=== PATIENT | male | born 1990 | race Caucasian/White ===

== ENCOUNTER 2021-07-06 13:11 | Emergency (ER) | payer SELFPAY ==
[2021-07-06] MEDS ORDERED: SODIUM CHLORIDE 0.9% 500 ML 1,000 ML IV ONE (13:43)
--- NOTE | 2021-07-06 13:43 | Emergency Department Report ---
ED General Adult HPI - General Stated complaint: NIMISHA/FEVER Time Seen by Provider: 07/06/21 13:42 - History of Present Illness Initial comments: Patient presents with a 1 week history of GI symptoms associated with cough and congestion. He has had nausea, vomiting, and diarrhea. He reports having chest pain and abdominal pain. He has had shortness of breath with a productive cough. Cough has been producing green phlegm. He has felt some shortness of breath. He came in today with his . He states that she is more ill than he has. They have no known coronavirus exposure. He has not been vaccinated. Patient states that he has generalized malaise and just does not feel well. The epigastric and chest pain are described as continuous. They are sharp and burning. The symptoms are not worse with inspiration, position, or exertion. He came in today because he felt his symptoms were worsening over the last 24 hours. - Related Data Previous Rx's Medication Instructions Recorded Last Taken Type Albuterol Mdi (or & Nicu Only) 2 puff IH QID PRN #8.5 gram 07/06/21 Unknown Rx [ProAir HFA Inhaler] Ondansetron [Zofran Odt] 4 mg PO Q8HR #20 tab.rapdis 07/06/21 Unknown Rx methylPREDNISolone [Medrol 4MG 4 mg PO 1XW #1 tab.ds.pk 07/06/21 Unknown Rx DOSEPAK (21 tabs)] Allergies Allergy/AdvReac Type Severity Reaction Status Date / Time No Known Allergies Allergy Unverified 07/06/21 14:12 ED Review of Systems ROS: Stated complaint: NIMISHA/FEVER Other details as noted in HPI Comment: All other systems reviewed and negative Constitutional: no symptoms reported, fever Eyes: denies: eye pain ENT: denies: throat pain Respiratory: no symptoms reported, cough Cardiovascular: as per HPI, chest pain Endocrine: denies: unexplained weight loss Gastrointestinal: as per HPI Genitourinary: denies: dysuria Musculoskeletal: denies: back pain Skin: denies: rash Neurological: denies: headache Hematological/Lymphatic: denies: easy bruising ED Past Medical Hx - Past Medical History Previous Medical History?: No - Family History Family history: no significant - Medications Home Medications: Home Medications Medication Instructions Recorded Confirmed Last Taken Type Albuterol Mdi (or & Nicu Only) 2 puff IH QID PRN #8.5 gram 07/06/21 Unknown Rx [ProAir HFA Inhaler] Ondansetron [Zofran Odt] 4 mg PO Q8HR #20 tab.rapdis 07/06/21 Unknown Rx methylPREDNISolone [Medrol 4MG 4 mg PO 1XW #1 tab.ds.pk 07/06/21 Unknown Rx DOSEPAK (21 tabs)] ED Physical Exam - General General appearance: alert, anxious, in distress (Mild) - Head Head exam: Present: atraumatic, normocephalic, normal inspection - Eye Eye exam: Present: normal appearance, EOMI. Absent: scleral icterus - ENT ENT exam: Present: normal exam, mucous membranes moist - Neck Neck exam: Present: normal inspection, full ROM. Absent: meningismus - Respiratory Respiratory exam: Present: normal lung sounds bilaterally. Absent: respiratory distress - Cardiovascular Cardiovascular Exam: Present: other (Normal pulses) - GI/Abdominal GI/Abdominal exam: Present: other (Flat) - Extremities Exam Extremities exam: Present: normal inspection - Back Exam Back exam: Present: normal inspection - Neurological Exam Neurological exam: Present: alert, oriented X3, normal gait - Psychiatric Psychiatric exam: Present: normal affect, normal mood - Skin Skin exam: Absent: cyanosis, diaphoretic ED Course Vital Signs 07/06/21 07/06/21 07/06/21 13:30 13:46 14:16 Pulse Rate 96 H 83 Respiratory 46 H 44 H Rate Blood Pressure O2 Sat by Pulse 93 94 93 Oximetry 07/06/21 07/06/21 07/06/21 14:30 14:46 15:00 Pulse Rate 80 77 74 Respiratory 32 H 35 H 31 H Rate Blood Pressure 102/68 O2 Sat by Pulse 94 94 94 Oximetry 07/06/21 15:16 Pulse Rate 81 Respiratory 33 H Rate Blood Pressure 102/68 O2 Sat by Pulse 96 Oximetry - Reevaluation(s) Reevaluation #1: 07/06/21 13:43 IV and labs are ordered. Reevaluation #2: 07/06/21 14:17 EKG was noted. Reevaluation #3: 07/06/21 17:01 Work-up is complete. Patient is not hypoxic. He does have symptoms of suggest coronavirus. He is not hypoxic and does not require admission. There is no evidence of a lobar pneumonia. He does not have features of severe sepsis or septic shock. Patient does not appear to be in any distress at this time. I do believe discharge would be most appropriate. He will quarantine at home and follow-up with his regular physician. He certainly does not have symptoms suggestive of bowel obstruction or perforation. There is no peritoneal find ings. He is not anemic. There is no evidence of profound dehydration. ED Medical Decision Making - Lab Data Result diagrams: 07/06/21 13:57 07/06/21 13:57 - EKG Data -: EKG Interpreted by Me EKG shows normal: sinus rhythm, axis, intervals, QRS complexes, ST-T waves Rate: normal - EKG Data When compared to previous EKG there are: previous EKG unavailable Interpretation: no acute changes (EKG shows a normal sinus rhythm with normal intervals. There is no ST elevation suggestive of ischemia. There is isolated T wave inversion in lead III.) Critical Care Time: No Critical care attestation.: If time is entered above; I have spent that time in minutes in the direct care of this critically ill patient, excluding procedure time. ED Disposition Clinical Impression: Nausea vomiting and diarrhea, Acute URI, Suspected COVID-19 virus infection Disposition: HOME / SELF CARE / HOMELESS Is pt being admited?: No Does the pt Need Aspirin: No Condition: Stable Instructions: Cool Mist Vaporizer, Nausea and Vomiting, Adult, Upper Respiratory Infection, Adult, [id number], Viral Respiratory Infection Test Additional Instructions: Drink plenty water. Return for problems. Follow-up with your regular doctor. Quarantine at home for 2 weeks. Prescriptions: methylPREDNISolone [Medrol 4MG DOSEPAK (21 tabs)] 4 mg PO 1XW #1 tab.ds.pk Albuterol Mdi (or & Nicu Only) [ProAir HFA Inhaler] 2 puff IH QID PRN #8.5 gram PRN Reason: Shortness Of Breath Ondansetron [Zofran Odt] 4 mg PO Q8HR #20 tab.rapdis Print Language: WELSH
[2021-07-06] MEDS ORDERED: ONDANSETRON 4 MG/2 ML INJ IV NR (13:46)
[2021-07-06 14:42] LABS: Alanine Aminotransferase 67 units/L (7-56); Albumin 3.8 g/dL (3.9-5); BUN/Creatinine Ratio 18; Blood Urea Nitrogen 14 mg/dL (9-20); Calcium 8.8 mg/dL (8.4-10.2); Hemolysis Index 5
[2021-07-06 14:44] LABS: Basophils % (Auto) 0.2 % (0.0-1.8); Hematocrit 40.3 % (35.5-45.6); Hemoglobin 14.1 gm/dl (11.8-15.2); Lymphocytes # (Auto) 0.6 K/mm3 (1.2-5.4); Lymphocytes % (Auto) 10.2 % (13.4-35.0); Mean Corpuscular HGB Conc 35 % (32-34); Mean Corpuscular Volume 88 fl (84-94); Monocytes # (Auto) 0.4 K/mm3 (0.0-0.8); Monocytes % (Auto) 7.1 % (0.0-7.3); Platelet Count 145 K/mm3 (140-440); Red Blood Count 4.56 M/mm3 (3.65-5.03); Red Cell Distribution Width 12.5 % (13.2-15.2)
[2021-07-06] MEDS ORDERED: dexAMETHasone 20 MG/5 ML VIAL IV ONE ×2 (15:15→18:01)
--- NOTE | 2021-07-06 15:24 | XRay Report ---
CHEST 1 VIEW 07/06/2021 1:42 PM INDICATION / CLINICAL INFORMATION: Cough, Covid. COMPARISON: None available. FINDINGS: SUPPORT DEVICES: None. HEART / MEDIASTINUM: No significant abnormality. LUNGS / PLEURA: Patchy opacity at the right mid/lower zone and left base. No pneumothorax. ADDITIONAL FINDINGS: No significant additional findings. IMPRESSION: Bilateral pneumonia right greater than left. Signer Name: Alexander Salazar MD Signed: 07/06/2021 3:20 PM Workstation Name: [id number]
[2021-07-06 15:39] VITALS: BP 102/68
--- NOTE | 2021-07-06 16:04 | Cat Scan Report ---
CTA CHEST WITH CONTRAST INDICATION / CLINICAL INFORMATION: possible pe, likely covid. TECHNIQUE: Axial CT images were obtained through the chest after injection of 100 cc of Omnipaque 300 IV contrast. 3 plane MIP and/or 3D reconstructions were produced. All CT scans at this location are performed using CT dose reduction for ALARA by means of automated exposure control. COMPARISON: None available. FINDINGS: PULMONARY ARTERIES: No pulmonary emboli. THORACIC AORTA: No significant abnormality. HEART: No significant abnormality. CORONARY ARTERY CALCIFICATION: None. MEDIASTINUM / SURYA: No significant abnormality. PLEURA: No pleural effusion. No pneumothorax. LUNGS: There are bilateral pulmonary opacities which are more prominent peripherally and in the lower lung zones though the process does involve all lobes. ADDITIONAL FINDINGS: None. UPPER ABDOMEN: No acute findings. SKELETAL STRUCTURES: No significant osseous abnormality. IMPRESSION: 1. No CT evidence for pulmonary embolism. 2. Bilateral airspace opacities are characteristic of an atypical/viral pneumonia Signer Name: Cristhian Parsons MD Signed: 07/06/2021 3:59 PM Workstation Name: [id number]
--- NOTE | 2021-07-07 10:10 | Electrocardiograph Report ---
[facility] Test Date: 2021-07-06 Test Time: 13:49:29 Pat Name: VIKA PENA Department: Room: Gender: M Frame Bander: KAITY : 1990 Requested By: SHELBY ROSARIO Order Number: [id number] Reading MD: Tara Daniels Measurements Intervals [place] Rate: 91 P: 38 OK: 167 QRS: 39 QRSD: 90 T: 9 QT: 343 QTc: 423 Interpretive Statements Sinus rhythm No previous ECG available for comparison Electronically Signed On 07-07-2021 10:10:42 EDT by Tara Daniels
== END 2021-07-06 18:39 | disposition home or self-care (01) ==
LOC: ED 13:11
DX: J06.9 Acute upper respiratory infection, unspecified (principal); Z20.822 Contact with and (suspected) exposure to COVID-19
CPT/HCPCS: 36415; 71045; 71275; 80053; 82140; 82728; 83615; 84145; 84484; 85025; 85379; 86140; 87040; 93005; 96361; 96374; 99284; J1100; J2405; J7040; Q9967